=== PATIENT | male | born 1965 | race Two or more races ===

== ENCOUNTER 2024-08-23 10:28 | Emergency (ER) | payer OTHER ==
[~2024-08-23] VITALS: Ht 170.2 cm; Wt 86.2 kg
[2024-08-23] MEDS ORDERED: METHYLPREDNISOLONE SOD SUCC 125 MG VIAL IV ONE (11:30)
[2024-08-23] MEDS ORDERED: LEVALBUTEROL HCL 1.25 MG/3 ML SOLUTION IH ONE (11:30)
[2024-08-23] MEDS ORDERED: ACETAMINOPHEN 325 MG TABLET PO ONE (11:30)
[2024-08-23] MEDS ORDERED: BENZONATATE 200 MG CAPSULE PO ONE (11:30)
[2024-08-23 12:40] LABS: HEMATOCRIT 47.5 % (39.0-48.0); HEMOGLOBIN 15.9 g/dL (13-16.00); MEAN CELL VOLUME 88.1 fL (80.0-100.00); MEAN CORPUSCULAR HEMOGLOBIN 29.6 pg (27.00-32.0); MEAN CORPUSCULAR HGB CONC 33.6 g/dl (32.0-36.0); PLATELET COUNT 304 K/uL (150-450); RED BLOOD COUNT 5.39 M/uL (4.00-6.00); RED CELL DISTRIBUTION WIDTH 14.4 % (11.5-14.5)
[2024-08-23] MEDS ORDERED: PEPCID AC20 MG PO (13:04)
[2024-08-23] MEDS ORDERED: BENZONATATE200 M1 PO (13:04)
[2024-08-23] MEDS ORDERED: AZITHROMYCIN500 MG PO (13:04)
[2024-08-23] MEDS ORDERED: MEDROLPACK PO (13:04)
[2024-08-23] MEDS ORDERED: SINGULAIR10 MG PO (13:04)
[2024-08-23] MEDS ORDERED: LEVALBUTER0.63 MG/3 IH (13:04)
== END 2024-08-23 13:14 | disposition home or self-care (01) ==
LOC: ER 10:29
PROVIDERS: General Practice
DX: R53.81 Other malaise (principal); R05.9 Cough, unspecified; J00 Acute nasopharyngitis [common cold]; Z20.822 Contact with and (suspected) exposure to COVID-19; I10 Essential (primary) hypertension